=== PATIENT | female | born 1960 | race Caucasian/White ===

== ENCOUNTER 2024-03-17 07:38 | Outpatient (CLI) | payer MEDICARE, SELFPAY ==
--- NOTE | ~2024-03-17 | MM_ITS ---
EXAMINATION: MM screening carlos BI w lewis HISTORY: Screening TECHNIQUE: Craniocaudal and mediolateral oblique 3-D tomosynthesis images were obtained and synthetic 2-D images were generated. CAD analysis was submitted and interpreted. COMPARISON: Comparison to multiple prior studies sequentially, with oldest reviewed study dated 07/02. BREAST PARENCHYMAL COMPOSITION: FINDINGS: There is a new focal asymmetry inferiorly in the right breast on MLO view, posterior third. The left breast is stable without evidence for malignancy. IMPRESSION: 1. New focal right breast asymmetry lower outer quadrant. 2. Recommend additional spot compression and exaggerated CC views of the right breast. BI-RADS Category 0: Incomplete: Needs additional imaging evaluation. Reviewed, dictated and finalized at location B.
== END 2024-03-17 07:39 | disposition home or self-care (01) ==
LOC: ANHIMG 07:42
PROVIDERS: PCP Nurse Practitioner Family; Visit Provider Internal Medicine
DX: Z12.31 Encounter for screening mammogram for malignant neoplasm of breast (principal); R92.8 Other abnormal and inconclusive findings on diagnostic imaging of breast
CPT/HCPCS: 77063; 77067

== ENCOUNTER 2024-04-09 12:01 | Outpatient (CLI) | payer MEDICARE, SELFPAY ==
--- NOTE | ~2024-04-09 | MMUS_ITS ---
EXAMINATION: MM diagnostic carlos RT w lewis, US breast RT limited HISTORY: Follow-up right breast asymmetry TECHNIQUE: Additional 3-D tomosynthesis images of the right breast were performed and synthetic 2-D i mages were generated. CAD analysis was submitted and interpreted. High resolution Limited right breas t ultrasound was performed. COMPARISON: Comparison to multiple prior studies sequentially, with oldest reviewed study dated 07/02. BREAST PARENCHYMAL COMPOSITION: Not Dense: Breast are almost entirely fatty. FINDINGS: MAMMOGRAPHIC FINDINGS: There is a persistent mass inferiorly in the right breast on spot MLO view posteriorly. The mass is r adiolucent and circumscribed, likely benign. This was not appreciated on CC or mediolateral views. ULTRASOUND: Limited right breast ultrasound: At 9:00, 10 cm from the nipple, there is a 2 mm cyst which does not correspond to the mammographic finding. No sonographic correlate to to the mammographic finding. IMPRESSION: 1. No definite sonographic correlate to mass in the inferior lateral aspect of the right breast near the skin surface, likely benign. 2. Recommend 6 month follow-up diagnostic right mammogram with possible additional ultrasound. BI-RADS category 3, probably benign findings. Reviewed, dictated and finalized at location B. IMPRESSION: 1. No definite sonographic correlate to mass in the inferior lateral aspect of the right breast near the skin surface, likely benign. 2. Recommend 6 month follow-up diagnostic right mammogram with possible additio nal ultrasound. BI-RADS category 3, probably benign findings.
== END 2024-04-09 12:02 | disposition home or self-care (01) ==
PROVIDERS: PCP Internal Medicine; Visit Provider Nurse Practitioner
DX: R92.8 Other abnormal and inconclusive findings on diagnostic imaging of breast (principal)
CPT/HCPCS: 76642; 77061; 77065; G0279

== ENCOUNTER 2024-11-20 08:59 | Outpatient (CLI) | payer MEDICARE, SELFPAY ==
--- NOTE | ~2024-11-20 | MMUS_ITS ---
EXAMINATION: MM diagnostic carlos RT w lewis, US breast RT limited HISTORY: Follow-up right breast mass TECHNIQUE: Additional 3-D tomosynthesis images of the right breast were performed and synthetic 2-D i mages were generated. CAD analysis was submitted and interpreted. High resolution Limited right breas t ultrasound was performed. COMPARISON: Comparison to multiple prior studies sequentially, with oldest reviewed study dated 03/19. BREAST PARENCHYMAL COMPOSITION: Not Dense: The breasts are almost entirely fatty. FINDINGS: MAMMOGRAPHIC FINDINGS: There is a stable mass at the right inframammary fold laterally. There are no suspicious calcificatio ns or architectural distortion. ULTRASOUND: Limited right breast ultrasound: At 7:00, 11 cm from the nipple near the chest wall there is a subcut aneous oval hypoechoic 7 x 9 x 3 mm hypoechoic mass without posterior acoustic enhancement or interna l vascularity, likely benign. IMPRESSION: 1. Probable benign 9 mm right breast mass at 7:00, 11 cm from the nipple near the chest wall. 2. Recommend 6 month follow-up Limited right breast ultrasound BI-RADS category 3, probably benign findings. Reviewed, dictated and finalized at location B. [employer] IMPRESSION: 1. Probable benign 9 mm right breast mass at 7:00, 11 cm from the nipple near t he chest wall. 2. Recommend 6 month follow-up Limited right breast ultrasound BI-RADS category 3, probably benign findings.
== END 2024-11-20 09:00 | disposition home or self-care (01) ==
LOC: MICIMG 08:59
PROVIDERS: PCP Internal Medicine; Visit Provider Internal Medicine
DX: R92.8 Other abnormal and inconclusive findings on diagnostic imaging of breast (principal)
CPT/HCPCS: 76642; 77061; 77065; G0279